=== PATIENT | male | born 1990 ===

== ENCOUNTER 2020-10-31 08:19 | Emergency (ER) | payer OTHER ==
[~2020-10-31] VITALS: Ht 177.8 cm; Wt 86.2 kg
[2020-10-31] MEDS ORDERED: BUTALBIT-ACETA1 EACH PO (09:53)
== END 2020-10-31 10:12 | disposition home or self-care (01) ==
LOC: ER 08:19
DX: R51.9 Headache, unspecified (principal); Z03.818 Encounter for observation for suspected exposure to other biological agents ruled out

== ENCOUNTER 2021-04-23 08:00 | Outpatient (CLI) | payer OTHER ==
[~2021-04-23 08:00] MED LIST: BUTALBIT-ACETA1 EACH PO
== END 2021-04-23 08:30 | disposition home or self-care (01) ==
LOC: PPH VACUNA 08:00
DX: Z23 Encounter for immunization (principal)

== ENCOUNTER 2021-05-14 08:00 | Outpatient (CLI) | payer OTHER | END 2021-05-14 08:30 | disposition home or self-care (01) | LOC: PPH VACUNA 08:00 | DX: Z23 Encounter for immunization (principal) ==

== ENCOUNTER 2021-11-06 08:00 | Outpatient (CLI) | payer OTHER | END 2021-11-06 08:30 | disposition home or self-care (01) | LOC: PPH VACUNA 08:00 | PROVIDERS: ATTEND Emergency Medicine Pediatric Emergency Medicine | DX: Z23 Encounter for immunization (principal) ==

== ENCOUNTER 2022-07-01 11:33 | Emergency (ER) | payer OTHER ==
[~2022-07-01] VITALS: Ht 180.3 cm; Wt 90.7 kg
== END 2022-07-01 13:31 | disposition home or self-care (01) ==
LOC: ER 11:33
DX: M79.89 Other specified soft tissue disorders (principal); M10.9 Gout, unspecified